=== PATIENT | male | born 1970 | race Asian ===

== ENCOUNTER 2019-06-09 08:18 | Emergency (ER) | payer OTHER ==
[~2019-06-09] VITALS: Ht 182.9 cm; Wt 81.2 kg
--- NOTE | 2019-06-09 08:30 | NUR ---
Patient ambulated with stable gait. Speech is clear, speaks in complete sentences. A/Ox4. No acute neuro deficits. Patient came for c/o left sided UE numbness since 129. Patient stated he was able to sleep through it. Respiratory even and unlabored, no cough no sob at this time even though he reported being short of breath. No acute cardiovascular distress noted, all pulses palpable. Denies any n/v/d. Patient in bed at lowest position, sr upx2, call light within reach. Fall precautions implemented per protocol. Patient connected to monitor.
--- NOTE | 2019-06-09 08:50 | NUR ---
Osmany Vinson at bedside capturing cxr
--- NOTE | 2019-06-09 08:58 | NUR ---
Cheese Packer at bedside drawing blood
[2019-06-09 09:08] LABS: BASOPHILS % (AUTO) 0.3 % (0.0-2.0); EOSINOPHILS # (AUTO) 0.1 K/uL (0.0-0.7); EOSINOPHILS % (AUTO) 1.1 % (0.0-7.0); HEMATOCRIT 43.5 % (36.7-47.1); HEMOGLOBIN 14.5 g/dL (12.5-16.3); LYMPHOCYTES # (AUTO) 1.6 K/uL (20.0-40.0); LYMPHOCYTES % (AUTO) 28.5 % (20.5-51.5); MEAN CORPUSCULAR HEMOGLOBIN 31.5 uug (23.8-33.4); MEAN CORPUSCULAR HGB CONC 33 g/dL (32.5-36.3); MEAN CORPUSCULAR VOLUME 94.7 fL (73.0-96.2); MONOCYTES # (AUTO) 0.2 K/uL (2.0-10.0); MONOCYTES % (AUTO) 4.2 % (0.0-11.0); NEUTROPHILS # (AUTO) 3.7 K/uL (1.8-8.9); NEUTROPHILS % (AUTO) 65.9 % (38.5-71.5); PLATELET COUNT (AUTO) 230 K/uL (152-348); RED BLOOD CELL COUNT(AUTO) 4.59 MIL/uL (4.06-5.63); WHITE BLOOD COUNT (AUTO) 5.6 K/uL (3.6-10.2)
[2019-06-09 09:24] LABS: BILIRUBIN,DIRECT 0.2 mg/dL (0.0-0.2); BILIRUBIN,TOTAL 0.6 mg/dL (0.2-1.0); CREATININE 0.9 mg/dL (0.6-1.3); POTASSIUM 4.2 mmol/L (3.5-5.1); TOTAL PROTEIN, SERUM 7.2 g/dL (6.4-8.2)
--- NOTE | 2019-06-09 09:45 | NUR ---
Patient discharged to home in stable conditon. Written and verbal after care instructions given. Patient verbalizes understanding of instructions. Provided patient with copy of all tests. Patient ambulated with stable gait.
[2019-06-09 09:47] VITALS: BP 128/82
== END 2019-06-09 09:47 | disposition home or self-care (01) ==
LOC: ER 08:22
DX: R20.2 Paresthesia of skin (principal)
CPT/HCPCS: 36415; 70030-TC; 71045; 85025; 93005; A4663

== ENCOUNTER 2021-05-31 07:48 | Emergency (ER) | payer OTHER ==
[~2021-05-31] VITALS: Ht 182.9 cm; Wt 91.6 kg
[2021-05-31] MEDS ORDERED: IV NORMAL SALINE 1000 ML BAG IV ONE ×2 (08:30)
[2021-05-31 08:56] LABS: HEMATOCRIT 45.5 % (36.7-47.1); MEAN CORPUSCULAR HEMOGLOBIN 31.1 uug (23.8-33.4); MEAN CORPUSCULAR VOLUME 92.9 fL (73.0-96.2); PLATELET COUNT (AUTO) 240 K/uL (152-348)
[2021-05-31 10:04] LABS: CREATININE 0.9 mg/dL (0.6-1.3)
[2021-05-31 10:16] LABS: BILIRUBIN,DIRECT 0.1 mg/dL (0.0-0.2); BILIRUBIN,TOTAL 0.6 mg/dL (0.2-1.0); TOTAL PROTEIN, SERUM 7.7 g/dL (6.4-8.2)
--- NOTE | 2021-05-31 11:10 | NUR ---
Patient discharged to home in stable condition. Written and verbal after care instructions given. Patient verbalizes understanding of instructions. Stressed follow up or return to ER for worsening s/s.pt says feels better, ready to go home.
[2021-05-31 12:15] VITALS: BP 131/77
== END 2021-05-31 11:10 | disposition home or self-care (01) ==
LOC: ER 07:50
DX: F41.9 Anxiety disorder, unspecified (principal); Z20.822 Contact with and (suspected) exposure to COVID-19; R03.0 Elevated blood-pressure reading, without diagnosis of hypertension
CPT/HCPCS: 36415; 70030-TC; 71045; 84443; 85025; 93005; A4663; J7030